=== PATIENT | male | born 1995 | race African-American/Black ===

== ENCOUNTER 2019-12-28 22:07 | Emergency (ER) | payer OTHER ==
[~2019-12-28] VITALS: Ht 167.6 cm; Wt 69.9 kg
[2019-12-28] MEDS ORDERED: ONDANSETRON 4 MG ORAL DISINTEGRATING TAB (Q0162 PER 1MG) PO ONE (22:30)
[2019-12-29 01:36] LABS: BASO % 0.2 % (0.0-1.0); HEMATOCRIT 53.6 % (42.0-52.0); HEMOGLOBIN 16.6 g/dl (13.5-17.5); LYMPH # 0.4 10^3/uL (1.5-5.0); LYMPH % 7.4 % (24.0-44.0); MEAN CORPUSCULAR HEMOGLOBIN 25.1 pg (27.0-33.0); MONO # 0.3 10^3/uL (0.0-0.8); MONO % 5.2 % (0.0-5.0); NEUTROPHILS # 5.2 10^3/uL (1.5-8.5); NEUTROPHILS % 86.9 % (36.0-66.0); PLATELET COUNT, AUTOMATED 223 10^3/uL (150-450); RED BLOOD COUNT 6.62 10^6/uL (4.30-6.10)
[2019-12-29] MEDS ORDERED: METOCLOPRAMIDE INJ 10MG/2ML VIAL (J2765) IV ONE (01:45)
[2019-12-29 01:57] LABS: BILIRUBIN,DIRECT 0.3 MG/DL (0.0-0.2); TOTAL PROTEIN 8.8 GM/DL (6.4-8.2)
[2019-12-29] MEDS ORDERED: REGL10TA6 PO (02:57)
[2019-12-29] MEDS ORDERED: ONDA4TAB6 PO (02:57)
[2019-12-29 03:18] VITALS: BP 138/80
== END 2019-12-29 03:36 | disposition home or self-care (01) ==
LOC: M ED 22:07
DX: K52.9 Noninfective gastroenteritis and colitis, unspecified (principal); Z72.0 Tobacco use
CPT/HCPCS: 80047; 80076; 81001; 83690; 85025; 96374; 99284; J2765; Q0162